=== PATIENT | male | born 1955 | race African-American/Black ===

== ENCOUNTER 2023-02-07 14:13 | Emergency (ER) | payer MEDICAID, OTHER, MEDICARE ==
[~2023-02-07] VITALS: Ht 175.3 cm; Wt 80.0 kg
[2023-02-07 14:27] VITALS: BP 110/64; PULSE 100; RESP 16; TEMP 98.5; O2SAT 99
[2023-02-07] MEDS ORDERED: HYDR-4001 MT (19:11)
== END 2023-02-07 20:09 | disposition home or self-care (01) ==
LOC: ER 14:13
DX: G89.29 Other chronic pain (principal); M54.50 Low back pain, unspecified
CPT/HCPCS: 72100; 99283

== ENCOUNTER 2023-02-23 16:31 | Inpatient (IN) | payer MEDICARE, MEDICAID ==
[~2023-02-23] VITALS: Ht 167.6 cm; Wt 62.2 kg
[~2023-02-23 16:31] MED LIST: ATOR20TA65 PO; HYDR-4001 MT
[2023-02-23] MEDS ORDERED: MORPHINE SULFATE 4 MG/ML CPJ (NOT FOR IM USE) IV STA (16:56)
[2023-02-23] MEDS ORDERED: ONDANSETRON HCL 4MG/2ML INJ IV STA (16:56)
[2023-02-23 17:49] LABS: CHLORIDE 105 mEq/L (98-107); INDEX HEMOLYSI 1 (1-3); INDEX ICTERIC 1 (1-4); INDEX LIPEMIC 1 (1-3); POTASSIUM 3.8 mEq/L (3.5-5.1); SODIUM 136 mEq/L (136-145)
[2023-02-23 17:55] LABS: BASOPHILS % 0.5 % (0.0-2.0); EOSINOPHILS % 3.1 % (0.0-5.0); HEMATOCRIT. 25.9 % (42.0-52.0); HEMOGLOBIN. 8.4 g/dL (14.0-18.0); LYMPHOCYTES % 27.8 % (20.0-50.0); MEAN CORPUSCULAR HEMOGLOBIN 27.7 pg (28.0-32.0); MEAN CORPUSCULAR HGB CONC 32.3 g/dL (31.0-37.0); MEAN CORPUSCULAR VOLUME 85.7 fL (80.0-94.0); MEAN PLATELET VOLUME 7.6 fl (7.4-10.4); NEUTROPHILS % 57.6 % (40.0-76.0); PLATELET 177 x1000/uL (130-400); RED BLOOD CELL COUNT 3.03 mill/uL (4.7-6.1); RED CELL DISTRIBUTION WIDTH 24.9 % (11.6-14.6); WHITE BLOOD COUNT 3.5 x1000/uL (4.5-11.0)
[2023-02-23 17:57] LABS: ADD RBC MORPHOLOGY YES; DIFFERENTIAL COMMENT 1
[2023-02-23 18:02] LABS: ALANINE AMINOTRANSFERASE 28 IU/L (13-61); ALBUMIN 3.2 g/dL (3.4-5.0); ASPARTATE AMINOTRANSFERASE 17 IU/L (15-37); BILIRUBIN TOTAL 0.6 mg/dL (0.1-1.0); CALCIUM 9.5 mg/dL (8.5-10.1); CARBON DIOXIDE 26 mEq/L (21-32); GLUCOSE 102 mg/dL (70-105); NT PRO B-TYPE NATRIURETIC PEP 96 pg/mL (5-125); PROTEIN TOTAL 7.6 g/dL (6.0-8.3); TROPONIN I HIGH SENSITIVITY 5 ng/L (<78); UREA NITROGEN BLOOD 21 mg/dL (7-21)
[2023-02-23 18:26] LABS: PLATELET ESTIMATE NORMAL
[2023-02-23 18:27] LABS: ANISOCYTOSIS 2+; OVALOCYTES 1+
[2023-02-23 20:21] LABS: TROPONIN I HIGH SENSITIVITY 4 ng/L (<78)
[2023-02-24] MEDS ORDERED: ONDANSETRON HCL 4MG/2ML INJ IV ONE (01:00)
[2023-02-24] MEDS ORDERED: ASPIRIN 325MG EC TABLET PO ONE (01:00)
[2023-02-24] MEDS ORDERED: MORPHINE SULFATE 4 MG/ML CPJ (NOT FOR IM USE) IV ONE (01:00)
[2023-02-24] MEDS ORDERED: ONDANSETRON HCL 4MG/2ML INJ IV PRN (03:45)
[2023-02-24] MEDS ORDERED: MAGNESIUM/ALUMINUM HYDROXIDE/SIMETHICONE 30ML UDC PO PRN (03:45)
[2023-02-24] MEDS ORDERED: CLONIDINE 0.1MG TABLET PO PRN (03:45)
[2023-02-24] MEDS ORDERED: NALOXONE HCL 0.4MG/ML VIAL IV PRN (03:45)
[2023-02-24] MEDS ORDERED: ACETAMINOPHEN 325MG TABLET PO PRN ×2 (03:45)
[2023-02-24] MEDS ORDERED: IPRATROPIUM/ALBUTEROL 0.5-3(2.5)MG/3ML NEB HHN PRN (03:45)
[2023-02-24] MEDS ORDERED: GUAIFENESIN 200MG/10ML SUGAR FREE UDC PO PRN (03:45)
[2023-02-24 05:06] VITALS: BP 128/80; PULSE 74; RESP 19; TEMP 97.4
[2023-02-24] MEDS ORDERED: BICA50TA7 MT (05:39)
[2023-02-24] MEDS ORDERED: IOHEXOL-350 100 ML BOTTLE ONE (06:03)
[2023-02-24] MEDS ORDERED: PANTOPRAZOLE 40MG DR TABLET PO SCH (06:30)
[2023-02-24 08:00] VITALS: BP 113/72; PULSE 62; RESP 18; TEMP 96.9
[2023-02-24] MEDS ORDERED: ATORVASTATIN CALCIUM 20MG TABLET PO SCH (09:00)
[2023-02-24 12:00] VITALS: BP 115/74; PULSE 78; RESP 18; TEMP 96.8
[2023-02-24] MEDS: HYDROCODONE/ACETAMINOPHEN 7.5/325MG TABLET PO PRN ×2 (12:50→17:55)
[2023-02-24 15:03] VITALS: BP 112/74; PULSE 78; TEMP 96.8; O2SAT 99
[2023-02-24 16:00] VITALS: BP 105/70; PULSE 81; RESP 18; TEMP 97
[2023-02-24 17:55] VITALS: BP 105/70; PULSE 81; RESP 18
[2023-02-24 18:16] LABS: *AMPHETAMINES SCREEN URINE NEGATIVE (NEGATIVE); *BARBITURATES SCREEN URINE NEGATIVE (NEGATIVE); *BENZODIAZEPINES SCREEN URINE NEGATIVE (NEGATIVE); *COCAINE SCREEN URINE NEGATIVE (NEGATIVE); CANNABINOID URINE SCREEN NEGATIVE (NEGATIVE); ECSTASY MDMA SCREEN URINE NEGATIVE (NEGATIVE); METHADONE URINE SCREEN NEGATIVE (NEGATIVE); OPIATES URINE SCREEN PRESUMTIVE POSITIVE (NEGATIVE); PHENCYCLIDINE URINE SCREEN NEGATIVE (NEGATIVE)
== END 2023-02-24 18:50 | disposition home or self-care (01) | DRG 723 ==
LOC: ER 16:31 → 7WST 20:46 → ER 20:47 → MICUSO 02-24 01:03 → 7WST 02-24 05:17
PROVIDERS: ADMIT Internal Medicine; ATTEND Internal Medicine
DX: C61 Malignant neoplasm of prostate (principal); C79.51 Secondary malignant neoplasm of bone; E44.1 Mild protein-calorie malnutrition; D63.8 Anemia in other chronic diseases classified elsewhere; Z68.22 Body mass index [BMI] 22.0-22.9, adult; D72.819 Decreased white blood cell count, unspecified; E78.5 Hyperlipidemia, unspecified; F20.9 Schizophrenia, unspecified; M47.897 Other spondylosis, lumbosacral region; M85.80 Other specified disorders of bone density and structure, unspecified site; R07.89 Other chest pain
CPT/HCPCS: 36415; 71045; 71275; 80053; 80305; 83880; 84484; 85025; 85379; 86850; 86900; 93005; 93970; 97166; 99285; Q9967